=== PATIENT | male | born 1940 | race Caucasian/White ===

== ENCOUNTER → 2016-11-06 | Outpatient (CLI) | payer MEDICARE, BC | END | disposition home or self-care (01) | LOC: PCVCCLINIC 11:17 | PROVIDERS: ATTEND Internal Medicine | DX: I25.10 Atherosclerotic heart disease of native coronary artery without angina pectoris (principal); I42.8 Other cardiomyopathies; I50.9 Heart failure, unspecified; I34.0 Nonrheumatic mitral (valve) insufficiency; E78.00 Pure hypercholesterolemia, unspecified; I65.29 Occlusion and stenosis of unspecified carotid artery; Z95.0 Presence of cardiac pacemaker | CPT/HCPCS: 80061; 93005; G0463 ==

== ENCOUNTER → 2017-02-24 | Outpatient (CLI) | payer MEDICARE, BC ==
--- NOTE | 2017-02-24 16:30 | PCVCIMAG ---
APPROVED REPORT Study performed: 02/24/2017 14:46:11 EXAM: Comprehensive 2D, Doppler, and color-flow Echocardiogram Patient Location: Echo lab Status: routine Other Information Study Quality: Adequate Indications Congestive Heart Failure Mitral Valve Disease Mitral Valve Prolapse Assess Ejection Fraction CAD Mitral valve repair. Bi-V pacemaker 2D Dimensions IVSd: 14.88 (7-11mm)LVOT Diam: 21.25 (18-24mm) LVDd: 41.27 mm PWd: 13.44 (7-11mm) LVDs: 31.56 (25-40mm) Left Atrium: 37.40 (27-40mm) Aortic Root: 27.92 mm LV Single Plane 4CH: 43.49 % LV Single Plane 2CH: 39.96 %Ledezma's LVEF: 41.72 % Biplane EF: 41.7 % Volumes Left Atrial Volume (Systole) Single Plane 4CH: 58.03 mLSingle Plane 2CH: 50.16 mL LA ESV Index: 36.00 mL/m2 Aortic Valve AoV Peak Carlton.: 1.47 m/s AO Peak Gr.: 8.78 mmHgLVOT Max P.12 mmHg AO Mean Gr.: 4.63 mmHgLVOT Mean P.53 mmHg AO V2 Mean: 1.02 m/sLVOT Max V: 0.90 m/s AO V2 VTI: 28.61 cm DAVID (VTI): 2.03 [id number] V1 VTI: 16.36 cm DAVID Vmax: 2.17 cm2 AI Vmax: 3.83 m/s AI Bell: 1.93 m/s2 AI PHT: 576.08 ms Mitral Valve MV Peak Gr.: 7.89 mmHg MV Mean Gr.: 1.86 mmHgE/A Ratio: 2.9 MV Decel. Time: 309.24 ms MV E Max Carlton.: 1.55 m/s MV A Carlton.: 0.53 m/s MV Max Carlton.: 1.21 m/s MV VTI: 289.35 mm MVA VTI: 200.43 mm2 MV PHT: 89.68 ms TDI E/Lateral E': 25.83E/Medial E': 77.50 Medial E' Carlton.: 0.02 m/s Lateral E' Carlton.: 0.06 m/s Pulmonary Valve PV Peak Carlton.: 0.85 m/sPV Peak Gr.: 2.86 mmHg Pulmonary Vein P Vein S: 0.29 m/sP Vein A: 0.22 m/s P Vein D: 0.54 m/sP Vein A Dur.: 93.4 msec P Vein S/D Ratio: 0.54 Tricuspid Valve TR Peak Carlton.: 2.66 m/s TR Peak Gr.: 28.22 mmHg TV Vmax: 0.51 m/s Left Ventricle The left ventricle is normal size. Moderate concentric left ventricular hypertrophy. Left ventricular systolic function is mildly decreased. LVEF is 45-50%. Grade III diastolic dysfunction Right Ventricle The right ventricle is normal size. The right ventricular systolic function is normal. Atria Left atrium is mildly dilated. Right atrium is mildly dilated. Aortic Valve Aortic valve leaflets are sclerotic with mild decreased excursion. Mild aortic regurgitation. No stenosos Mitral Valve Mitral annuloplasty ring Mild-moderate mitral regurgitation. Borderline mitral stenosis. Peak gradient 8mm; mean gradient of 3 mmHg Tricuspid Valve The tricuspid valve is normal in structure. Moderate tricuspid regurgitation with a PA pressure of 35 mmHg. Pacemaker wire is seen. Pulmonic Valve The pulmonary valve is normal in structure. There is no pulmonic valvular regurgitation. Great Vessels The aortic root is normal in size. IVC is normal in size and collapses >50% with inspiration. Pericardium There is no pericardial effusion. There is no pleural effusion. <Conclusion> Left ventricular systolic function is mildly decreased. LVEF is 45-50%. Grade III diastolic dysfunction Moderate LVH Both atria are dilated. Aortic valve leaflets are sclerotic with mild decreased excursion. Mild aortic regurgitation. No significant stenosis Mitral annuloplasty ring; Mild-moderate mitral regurgitation. Very mild stenosis Pulmonary artery pressure of 35mmHg There is no pericardial effusion. Pacing wires in right heart
== END | disposition home or self-care (01) ==
LOC: PCVCIMAG 14:02
PROVIDERS: ATTEND Internal Medicine
DX: I08.3 Combined rheumatic disorders of mitral, aortic and tricuspid valves (principal); I25.810 Atherosclerosis of coronary artery bypass graft(s) without angina pectoris; I42.9 Cardiomyopathy, unspecified; I65.23 Occlusion and stenosis of bilateral carotid arteries; I11.0 Hypertensive heart disease with heart failure; I50.9 Heart failure, unspecified; E78.00 Pure hypercholesterolemia, unspecified; M54.16 Radiculopathy, lumbar region; M47.896 Other spondylosis, lumbar region; Z95.810 Presence of automatic (implantable) cardiac defibrillator; Z95.1 Presence of aortocoronary bypass graft; Z87.891 Personal history of nicotine dependence; Z88.3 Allergy status to other anti-infective agents; Z79.82 Long term (current) use of aspirin; Z79.899 Other long term (current) drug therapy
CPT/HCPCS: 93005; 93306; G0463

== ENCOUNTER → 2017-08-31 | Outpatient (CLI) | payer MEDICARE, BC | END | disposition home or self-care (01) | LOC: PCVCCLINIC 09:49 | PROVIDERS: ATTEND Internal Medicine | DX: I25.810 Atherosclerosis of coronary artery bypass graft(s) without angina pectoris (principal); I25.5 Ischemic cardiomyopathy; E78.5 Hyperlipidemia, unspecified; I10 Essential (primary) hypertension; I65.23 Occlusion and stenosis of bilateral carotid arteries; Z98.890 Other specified postprocedural states; Z95.810 Presence of automatic (implantable) cardiac defibrillator; Z87.891 Personal history of nicotine dependence; Z79.82 Long term (current) use of aspirin; Z79.899 Other long term (current) drug therapy | CPT/HCPCS: 80061; 93005; G0463 ==

== ENCOUNTER → 2018-03-01 | Outpatient (CLI) | payer MEDICARE, BC | END | disposition home or self-care (01) | LOC: PCVCIMAG 10:48 | DX: I65.23 Occlusion and stenosis of bilateral carotid arteries (principal); I25.810 Atherosclerosis of coronary artery bypass graft(s) without angina pectoris; I25.5 Ischemic cardiomyopathy; E78.5 Hyperlipidemia, unspecified; I10 Essential (primary) hypertension; Z95.810 Presence of automatic (implantable) cardiac defibrillator; Z98.890 Other specified postprocedural states; Z87.891 Personal history of nicotine dependence; Z79.82 Long term (current) use of aspirin | CPT/HCPCS: 80061; 93005; 93880; G0463 ==

== ENCOUNTER → 2018-08-16 | Outpatient (CLI) | payer MEDICARE, BC ==
[~2018-08-16] MED LIST: REGADENOSON 0.4 MG/5 ML DISP.SYRIN. IV ONE
--- NOTE | 2018-08-16 09:59 | PCVCIMAG ---
APPROVED REPORT Study performed: 08/16/2018 08:41:48 EXAM: Comprehensive 2D, Doppler, and color-flow Echocardiogram Patient Location: Echo lab Status: routine BSA: 1.74 HR: 66 bpmBP: 120/80 mmHg Rhythm: NSR Other Information Study Quality: Good Indications CAD Ischemic cardiomyopathy, Mitral Valve Repair. CABG, AICD 2D Dimensions IVSd: 20.10 (7-11mm)LVOT Diam: 18.72 (18-24mm) LVDd: 33.93 mm PWd: 15.58 (7-11mm)Ascending Ao: 32.84 (22-36mm) LVDs: 34.74 (25-40mm) Left Atrium: 40.58 (27-40mm) Aortic Root: 30.42 mm LV Single Plane 4CH: 36.10 % LV Single Plane 2CH: 41.31 % Biplane EF: 39.3 % Volumes Left Atrial Volume (Systole) Single Plane 4CH: 78.26 mLSingle Plane 2CH: 54.15 mL LA ESV Index: 39.00 mL/m2 Aortic Valve AoV Peak Carlton.: 1.24 m/s AO Peak Gr.: 6.19 mmHgLVOT Max P.33 mmHg LVOT Max V: 0.76 m/s DAVID Vmax: 1.69 cm2 AI Vmax: 3.87 m/s AI Tucker: 2.57 m/s2 AI PHT: 437.68 ms Mitral Valve MV VTI: 352.22 mm MV PHT: 66.27 ms MVA (PHT): 3.32 cm2 Pulmonary Valve PV Peak Gr.: 1.07 mmHg Tricuspid Valve TR Peak Carlton.: 3.14 m/s TR Peak Gr.: 39.53 mmHg Left Ventricle The left ventricle is normal size. Global hypokinesis. Moderate concentric left ventricular hypertrophy. Left ventricular systolic function is moderately decreased. LVEF is 35-40%. The left ventricular diastolic function is normal. Right Ventricle The right ventricle is normal size. The right ventricular systolic function is normal. Pacemaker lead is present in the right ventricle. Atria Left atrium is mildly dilated. Pacemaker lead is present in the right atrium. Aortic Valve The aortic valve is mildly sclerotic Trace aortic regurgitation. There is no aortic valvular stenosis. Mitral Valve Mitral valve repair #28 rigid annuloplasty ring. Mild mitral regurgitation. No evidence of mitral valve stenosis. Tricuspid Valve The tricuspid valve is normal in structure. Trace tricuspid regurgitation. Pulmonary artery pressure is 45 mmHg. Pulmonic Valve The pulmonary valve is normal in structure. There is no pulmonic valvular regurgitation. Great Vessels The aortic root is normal in size. IVC is normal in size and collapses >50% with inspiration. Pericardium There is no pericardial effusion. <Conclusion> Left ventricular systolic function is moderately decreased. Global hypokinesis. Moderate LVH LVEF is 35-40%. Both atria are mildly dilated. The aortic valve is mildly sclerotic. Trace aortic regurgitation, no stenosis. Mitral valve repair #28 rigid annuloplasty ring. Mild mitral regurgitation. Trace tricuspid regurgitation. Pulmonary artery pressure of 45 mmHg. There is no pericardial effusion.
--- NOTE | 2018-08-16 15:02 | PCVCIMAG ---
APPROVED REPORT Imaging Protocol: Rest Tc-99m/Stress Tc-99m 1 day Study performed: 08/16/2018 10:07:16 Indication: Dyspnea, CAD, ICM Patient Location: Out-Patient Stress Nurse: Jennifer Magallanes RN, Elza Malcolm RN [place] Tech:Yvonne Camargoanjelica [facility] Ht: 5 ft 7 in Wt: 140 lbs BSA: 1.74 m2 HR: 63 bpm BP: 150/74 mmHg BMI: 21.9 Rhythm: V Paced Medical History Medical History: HTN, Hyperlipidemia, CVD, Former Smoker Medications: ASA, Atorvastatin, Coreg, COQ10, Losartan Allergies: Surgical Scrub Cardiac Risk Factors: Age, CAD, Pacemaker Previous Cardiac Procedures: CABG, MVR Pretest Chest Pain Characteristics: No chest pain Exercise History: Physically active Meds Held (24 hrs): Coreg Resting Data Rest SPECT myocardial perfusion imaging was performed in supine position 45 minutes following the intravenous injection of 9.3 mCi of Tc-99m Sestamibi. Time of rest injection: 09 Administration Route: IV Administration Site: Right AC Pharmacologic Stress Pharmacologic stress test was performed by injecting Regadenoson 0.4 mg IV push over 10-15 seconds immediately followed by the intravenous injection of 34.5 mCi of Tc-99m Sestamibi. Time of stress injection: Date: 08/16/2018 Administration Route: IV Administration Site: Right AC Gated Stress SPECT was performed 45 minutes after stress injection. The images were gated to evaluate regional wall motion and calculate left ventricular ejection fraction. Stress Test Details Stress Test: Pharmacologic stress was paired with low level exercise. Reason for pharmacologic stress test: physical limitation, pacemaker. HRMax Heart Rate (APMHR): 142 bpm Resting HR: 63 bpmTarget HR (85% APMHR): 120 bpm Max HR Achieved: 88 bpm % of APMHR: 61 Recovery HR: 68 bpm BP Resting BP: 150/74 mmHg Max BP: 128/74 mmHg Recovery BP: 153/79 mmHg ECG Resting ECG: Sinus with Biv pacing Stress ECG: Sinus with Biv pacing ST Change: Nondiagnostic V-pacing or LBBB Arrhythmia: None Recovery ECG: Paced Rhythm Recovery ST Change: Nondiagnostic V-pacing or LBBB Recovery ST Deviation: 0 mm Recovery Arrhythmia: None Clinical Reason for Termination: Completed protocol Stress Symptoms: Dyspnea Exercise duration: 4 min 00 sec Exercise capacity: 1.6 METs Symptoms resolved with caffeine. Stress ECG Conclusion ECG: Non-ischemic Non-diagnostic electrocardiogram due to Biv pacing Study Data Post stress, the left ventricular ejection was 44%.. SSS: 0 SRS: 0 SDS: 0 TID = 1.01. Perfusion No evidence of stress induced ischemia. 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 Wall Motion Mildly decreased left ventricular systolic function. Nuclear Conclusion No evidence of stress induced ischemia. 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 Post stress, the left ventricular ejection was 44%. No prior study available for comparison. Interpreted by: Mateus Thornton MD Electronically Approved: 08/16/2018 14:16:30 <Conclusion> ECG: Non-ischemic Non-diagnostic electrocardiogram due to Biv pacing
== END | disposition home or self-care (01) ==
LOC: PCVCIMAG 08:51
PROVIDERS: ATTEND Internal Medicine
DX: I25.810 Atherosclerosis of coronary artery bypass graft(s) without angina pectoris (principal); I34.0 Nonrheumatic mitral (valve) insufficiency; I25.5 Ischemic cardiomyopathy; R06.00 Dyspnea, unspecified; I10 Essential (primary) hypertension; E78.5 Hyperlipidemia, unspecified; Z95.0 Presence of cardiac pacemaker; Z98.890 Other specified postprocedural states; Z87.891 Personal history of nicotine dependence
CPT/HCPCS: 78452; 80061; 93017; 93284; 93306; A9500; G0463; J2785

== ENCOUNTER → 2018-09-20 | Outpatient (CLI) | payer MEDICARE, BC | END | disposition home or self-care (01) | LOC: PCVCCLINIC 13:18 | PROVIDERS: ATTEND Internal Medicine | DX: I25.810 Atherosclerosis of coronary artery bypass graft(s) without angina pectoris (principal); I11.0 Hypertensive heart disease with heart failure; I50.22 Chronic systolic (congestive) heart failure; I25.5 Ischemic cardiomyopathy; E78.5 Hyperlipidemia, unspecified; I65.23 Occlusion and stenosis of bilateral carotid arteries; Z95.810 Presence of automatic (implantable) cardiac defibrillator; Z98.890 Other specified postprocedural states; Z87.891 Personal history of nicotine dependence; Z79.82 Long term (current) use of aspirin | CPT/HCPCS: 93005; 93284; G0463 ==

== ENCOUNTER → 2019-03-23 | Outpatient (CLI) | payer MEDICARE, BC | END | disposition home or self-care (01) | LOC: PCVCCLINIC 10:20 | PROVIDERS: ATTEND Internal Medicine | DX: I25.810 Atherosclerosis of coronary artery bypass graft(s) without angina pectoris (principal); I11.0 Hypertensive heart disease with heart failure; I50.22 Chronic systolic (congestive) heart failure; I48.0 Paroxysmal atrial fibrillation; I25.5 Ischemic cardiomyopathy; E78.5 Hyperlipidemia, unspecified; I65.23 Occlusion and stenosis of bilateral carotid arteries; Z98.890 Other specified postprocedural states; Z95.810 Presence of automatic (implantable) cardiac defibrillator | CPT/HCPCS: 36415; 93005; G0463 ==